=== PATIENT | female | born 1960 | race Caucasian/White ===

== ENCOUNTER 2016-09-29 16:36 | Emergency (ER) | payer MEDICARE, MEDICAID ==
[~2016-09-29] VITALS: Ht 160 cm; Wt 72.3 kg
[~2016-09-29 16:36] MED LIST: ALBUTEROL SULFAT3 M3 IH; AMBIEN 10MG10 MG PO; AMITRIPTYLINE H25 M1 PO; CALCIUM600 M2 PO; CELEXA20 MG PO; CELEXA40 MG PO; CITALOPRAM20 MG PO; CLARITIN 1010 MG/TAB PO; COLACE 100100 MG/CAP PO; DAZIDOX10 MG PO; FETZIMA80 PO; FLEXERIL 1010 MG/TAB PO; FLOMAX 0.40.4 MG/CAP PO; FLONASE NASAL S16 GM NS; FLOVENT 220MCG7.9 GM IH; KLONOPIN 1MG1 MG PO; KLONOPIN0.5 MG PO; KLOR-CON M2020 MEQ PO; LEVAQUIN 5500 MG/TA1 PO; LEVAQUIN 750MG750 M1 PO; LEVAQUIN 750MG750 MG PO; LEXAPRO 10MG10 MG PO; LIPITOR 10MG10 MG PO; LISINOPRIL10 MG PO; MIRAPEX 0.0.125 MG/T PO; MOBIC 7.5MG7.5 MG PO; MOBIC7.5 M1 PO; NORCO 325 MG-51 TAB PO; OMEPRAZOLE20 MG PO; PERCOCET 325 MG1 TA2 PO; PHENERGAN 25 TA25 MG PO; PREDNISONE20 MG PO; PRINIVIL10 MG PO; PROVENTIL0.09 MG/A1 IH; SINGULAIR 110 MG/TAB PO; TYLENOL 500MG500 MG PO; ULTRAM 50MG TAB50 MG PO; VALIUM 10MG10 MG/TAB; VALIUM5 MG PO; VENTOLIN0.09 MG IH; VESICARE10 MG PO; VITAMIN D2400 IU PO; XARELTO15 MG PO; ZANTAC 7575 MG PO
[2016-09-29 16:40] VITALS: BP 112/54; PULSE 80; TEMP 98.4
== END 2016-09-29 18:15 | disposition home or self-care (01) ==
LOC: COL.ER 16:36
DX: S86.812A Strain of other muscle(s) and tendon(s) at lower leg level, left leg, initial encounter (principal); W18.42XA Slipping, tripping and stumbling without falling due to stepping into hole or opening, initial encounter; Y92.008 Other place in unspecified non-institutional (private) residence as the place of occurrence of the external cause
CPT/HCPCS: L1830

== ENCOUNTER → 2017-01-15 | Outpatient (CLI) | payer MEDICARE, MEDICAID | LOC: COL.CARD 12:20 | DX: R29.818 Other symptoms and signs involving the nervous system (principal) ==

== ENCOUNTER 2018-01-02 22:13 | Emergency (ER) | payer MEDICARE ==
[~2018-01-02] VITALS: Ht 160 cm; Wt 75.9 kg
[2018-01-02 22:17] VITALS: BP 131/63; TEMP 97.9
[2018-01-03] MEDS ORDERED: NORCO 325 MG-51 TAB PO (00:45)
[2018-01-03 00:55] VITALS: PULSE 84
== END 2018-01-03 01:09 | disposition home or self-care (01) ==
LOC: COL.ER 22:13
DX: S02.2XXA Fracture of nasal bones, initial encounter for closed fracture (principal); S50.02XA Contusion of left elbow, initial encounter; F32.9 Major depressive disorder, single episode, unspecified; E78.00 Pure hypercholesterolemia, unspecified; W18.09XA Striking against other object with subsequent fall, initial encounter; Y92.410 Unspecified street and highway as the place of occurrence of the external cause

== ENCOUNTER 2018-08-30 13:00 | Outpatient (RCR) | payer MEDICARE | END 2018-10-19 16:03 | disposition home or self-care (01) | LOC: WSOT 13:00 | DX: Z47.1 Aftercare following joint replacement surgery (principal); Z96.692 Finger-joint replacement of left hand | CPT/HCPCS: G8987-GO; G8988-GO ==

== ENCOUNTER → 2020-08-01 | Outpatient (CLI) | payer MEDICARE | LOC: MC.RAD 13:44 | DX: N64.4 Mastodynia (principal) ==

== ENCOUNTER 2021-01-05 14:11 | Emergency (ER) | payer MEDICARE ==
[~2021-01-05] VITALS: Ht 160 cm; Wt 85.5 kg
[2021-01-05 14:38] VITALS: TEMP 97.6
[2021-01-05 17:43] VITALS: BP 113/76; PULSE 74
== END 2021-01-05 17:44 | disposition home or self-care (01) ==
LOC: COL.ER 14:11
DX: S92.512A Displaced fracture of proximal phalanx of left lesser toe(s), initial encounter for closed fracture (principal); F32.9 Major depressive disorder, single episode, unspecified; J45.909 Unspecified asthma, uncomplicated; Z79.899 Other long term (current) drug therapy; W22.8XXA Striking against or struck by other objects, initial encounter